=== PATIENT | male | born 1935 | race Caucasian/White ===

== ENCOUNTER 2017-02-08 12:24 | Emergency (ER) | payer MEDICARE, OTHER ==
[~2017-02-08 12:24] MED LIST: ACCUPRIL40 MG PO; AMARYL2 PO; ASAB PO; AT25 PO; CENTRUM PO; CO Q-10100 MG PO; CYANO1000T PO; FLOMAX4 PO; GLUCOPHAGE1000 MG PO; HYDROCHLOROT25 MG PO; LIPITOR10 PO; MD ANDERSON MOUTHWAS PO; MELA3 PO; P20 PO; PRILO PO; TAZTIA X3 PO; VITAMIN D2000 UNIT PO; Z100 PO; [UNRECOGNIZED DRUG - OTHER] IV
== END 2017-02-08 14:40 | disposition home or self-care (01) ==
LOC: ER 12:24
DX: S49.92XA Unspecified injury of left shoulder and upper arm, initial encounter (principal); S49.91XA Unspecified injury of right shoulder and upper arm, initial encounter; M54.6 Pain in thoracic spine; I10 Essential (primary) hypertension; E11.9 Type 2 diabetes mellitus without complications; Z88.5 Allergy status to narcotic agent; Z79.52 Long term (current) use of systemic steroids; Z79.899 Other long term (current) drug therapy; W19.XXXA Unspecified fall, initial encounter
CPT/HCPCS: 71010; 72072; 73030-LT; 73030-RT; 99283